=== PATIENT | male | born 1990 | race Caucasian/White ===

== ENCOUNTER 2018-11-17 12:04 | Emergency (ER) | payer OTHER ==
[~2018-11-17] VITALS: Ht 170.2 cm; Wt 89.9 kg
[2018-11-17 12:56] VITALS: BP 134/71
--- NOTE | 2018-11-17 14:03 | NUR ---
PT. AMBULATED TO BED, WITH STEADY GAIT
--- NOTE | 2018-11-17 14:15 | NUR ---
PT IS A 28 Y/O MALE WHO PRESENTS TO THE ED C/O PENILE PAIN. PT STATES THAT HE HAS BLISTERS ON HIS PENIS AND THINKS HE HAS HERPES. PT DENIES PAIN AT THIS TIME. PT DENIES CP, SOB, N/V/D. PT AWAKE AND ALERT, RR EVEN/UNLABORED. PT REPOSITIONED FOR COMFORT, BED IN LOWEST POSITION. ER MD DR. WAHL NOTIFIED. WILL CONTINUE TO MONITOR. HX; DENIES RX; DENIES
[2018-11-17 15:09] VITALS: BP 128/82
--- NOTE | 2018-11-17 15:09 | NUR ---
Patient discharged with v/s stable. Written and verbal after care instructions given and explained. Patient alert, oriented and verbalized understanding of instructions. Ambulatory with steady gait. All questions addressed prior to discharge. ID band removed. Patient advised to follow up with PMD. Rx of ACYCLOVIR 400MG given. Patient educated on indication of medication including possible reaction and side effects. Opportunity to ask questions provided and answered.
== END 2018-11-17 15:09 | disposition home or self-care (01) ==
LOC: MED 12:04
DX: A60.00 Herpesviral infection of urogenital system, unspecified (principal)
CPT/HCPCS: 81002; 99283